=== PATIENT | female | born 1945 | race Caucasian/White ===

== ENCOUNTER → 2016-11-26 | Outpatient (CLI) | payer MEDICARE ==
[~2016-11-26] MED LIST: LOVA40TA70 PO; SERT-88 PO; TRAM-277 PO; VERA240T71 PO; [UNRECOGNIZED DRUG - CODE] PO
== END ==
LOC: WC.BC 15:30
DX: Z12.31 Encounter for screening mammogram for malignant neoplasm of breast (principal); N64.59 Other signs and symptoms in breast
CPT/HCPCS: 77063; G0202